=== PATIENT | male | born 1990 | race Caucasian/White ===

== ENCOUNTER 2021-01-19 11:10 | Emergency (ER) | payer SELFPAY ==
[~2021-01-19] VITALS: Ht 170.2 cm; Wt 86.0 kg
[2021-01-19] MEDS ORDERED: IBUPROFEN 600MG TABLET PO STA (11:41)
[2021-01-19] MEDS ORDERED: TETRACAINE 0.5% OPHTH DROPS 4ML LEFTEYE ONE (11:45)
[2021-01-19] MEDS ORDERED: BALANCED SALT IRRIG SOLN 15ML IR ONE (11:45)
[2021-01-19] MEDS ORDERED: FLUORESCEIN SODIUM 1MG/STRIP LEFTEYE ONE (11:45)
[2021-01-19 14:35] VITALS: BP 121/79
== END 2021-01-19 14:35 | disposition home or self-care (01) ==
LOC: ER 11:10
DX: T15.02XA Foreign body in cornea, left eye, initial encounter (principal); X58.XXXA Exposure to other specified factors, initial encounter; Y93.89 Activity, other specified; Y92.89 Other specified places as the place of occurrence of the external cause; Y99.8 Other external cause status
CPT/HCPCS: 65220; 99284; A4217; Z7610